=== PATIENT | male | born 2000 | race Caucasian/White ===

== ENCOUNTER 2023-03-06 04:00 | Emergency (ER) | payer BC, SELFPAY ==
[2023-03-06 04:05] VITALS: BP 152/99; PULSE 69; RESP 16; TEMP 36.8; O2SAT 99; BMI 19.5
--- NOTE | 2023-03-06 04:06 | HMH.EDGENADL ---
Discharge Plan Disposition Patient Disposition: Home, Self-Care Prescriptions Prescriptions: New doxycycline hyclate 100 mg tablet 100 mg PO BID 7 Days Qty: 14 0RF Referrals Follow up/Referrals: Provider,Referral, MD [Primary Care Provider] - See instructions Activity Restrictions/Add. Instructions Additional Instructions/Restrictions: Please take antibiotics as prescribed. We have treated you for gonorrhea, chlamydia, and trichomonas. Please follow-up with your primary care provider. Please return to the emergency department if you develop any new or worsening symptoms or become concerned for your health. Clinical Impressions Clinical Impression: Chlamydia trachomatis infection of genitourinary site, Abnormal penile discharge Instructions Patient Instructions: DI for Urinary Tract Infection (UTI), DI for Urinary Tract Infection in Children Discharge ED Provider: Rony Staley Adult HPI General Chief complaint: Urogenital-Male Stated complaint: positive for Chlamydia Time Seen by Provider: 03/06/23 04:05 History of Present Illness HPI narrative: 23-year-old male, previously healthy, presents for treatment of chlamydial infection. He reports that his has had chronic/recurrent urinary tract infections and she was tested for chlamydia and was positive. He was tested for chlamydia at a outpatient laboratory center in [place] and he just got his results back that he is positive for chlamydia. He was not tested for gonorrhea, trichomonas or any other STD. He reports that he has had approximately 1-1/2 weeks of dysuria and urinary discharge. He denies any penile lesions. Reports no fever or systemic illness. Related Data Previous Rx's Medication Instructions Recorded doxycycline hyclate 100 mg tablet 100 mg PO BID 7 days #14 tabs 03/06/23 Allergies Allergy/AdvReac Type Severity Reaction Status Date / Time No Known Allergies Allergy Verified 03/06/23 04:17 [facility] Disclaimer: The information contained in this section may have been updated after the patient was seen, as this information can be updated by other users. Social History Smoking Status: Current every day smoker alcohol intake: never current occupational status: other Travel in the last 8 weeks: None ROS Obtained: Yes All systems reviewed & no additional complaints except as documented Physical Exam General General appearance: alert and in no apparent distress Head Head exam: atraumatic and normocephalic Eye Eye exam: Present normal appearance, PERRL and EOMI ENT ENT exam: Present normal oropharynx and normal external ear exam Neck Neck exam: Present normal inspection and full ROM Chest Chest inspection: Present normal inspection and symmetric chest wall rise; Absent tenderness Respiratory Respiratory exam: Present normal lung sounds bilaterally; Absent respiratory distress Cardiovascular Cardiovascular exam: Present regular rate and normal rhythm Abdominal Exam Abdominal exam: Present soft; Absent distention, tenderness or guarding exam: Present deferred (Patient declined exam) Extremities Exam Extremities exam: Present normal inspection; Absent edema or joint swelling Back Exam Back exam: Present normal inspection; Absent tenderness Neurological Exam Neurological exam: Present alert and oriented X3; Absent motor sensory deficit Psychiatric Psychiatric exam: Present normal affect and normal mood Skin Skin exam: Present warm, dry and normal color Lymphatic Lymphatic Findings: no adenopathy Medical Decision Making Medical Records Medical records reviewed: Yes I reviewed the patient's medical records. Edgar Inquiry Pt receiving controlled substance: No Edgar was queried for this patient: No Vital Signs: 03/06/23 04:05 Temperature 98.3 F Temperature Source Oral Pulse Rate [Right] 69 Respiratory Rate 16 Blood Pressure [Right Arm] 152/99 H Blood Pressure Mean [Right Arm] 116
[2023-03-06 04:39] VITALS: BP 152/99; PULSE 69; RESP 16; TEMP 36.8; O2SAT 99
== END 2023-03-06 04:50 | disposition home or self-care (01) ==
PROVIDERS: Emergency Provider Emergency Medicine
DX: R36.9 Urethral discharge, unspecified (principal); A74.9 Chlamydial infection, unspecified; Z87.891 Personal history of nicotine dependence
CPT/HCPCS: 96372; 99283; 99284; J0696

== ENCOUNTER 2023-04-24 18:03 | Emergency (ER) | payer BC, SELFPAY ==
[2023-04-24 18:15] VITALS: BP 139/84; PULSE 82; RESP 20; TEMP 36.9; O2SAT 100
--- NOTE | 2023-04-24 18:31 | ED_ITS ---
Discharge Plan Disposition Patient Disposition: Home, Self-Care Condition: Good Prescriptions Prescriptions: New amoxicillin [amoxicillin] 875 mg tablet 875 mg PO Q12H Qty: 20 0RF ibuprofen [ibuprofen] 600 mg tablet 600 mg PO Q6HP PRN (Reason: Mild Pain) Qty: 30 0RF No Action doxycycline hyclate 100 mg tablet 100 mg PO BID 7 Days Qty: 14 0RF Referrals Follow up/Referrals: Provider,Referral, [Primary Care Provider] - See instructions Activity Restrictions/Add. Instructions Additional Instructions/Restrictions: Apply warm wet compresses to the affected site three or four times per day for the next few days. Take the antibiotics as directed. Take the ibuprofen as directed if needed for pain. Follow up with your primary care physician. GO TO THE ER FOR WORSENING SYMPTOMS Clinical Impressions Clinical Impression: Cervical lymphadenitis Instructions Patient Instructions: DI for Lymphadenopathy Discharge ED Provider: Sammy Acosta [facility] HPI General Stated complaint: lymph nodes around neck swollen Time Seen by Provider: 04/24/23 18:31 History of Present Illness Provider Complaint: He states that for the past 5 days he has had swollen lymph nodes in the left side of his neck. He denies any fever/chills. He denies sore throat. Related Data Previous Rx's Medication Instructions Recorded doxycycline hyclate 100 mg tablet 100 mg PO BID 7 days #14 tabs 03/06/23 amoxicillin 875 mg tablet 875 mg PO Q12H #20 tabs 04/24/23 ibuprofen 600 mg tablet 600 mg PO Q6HP PRN Mild Pain #30 04/24/23 tabs Allergies Allergy/AdvReac Type Severity Reaction Status Date / Time No Known Allergies Allergy Verified 03/06/23 04:17 [facility] Disclaimer: The information contained in this section may have been updated after the patient was seen, as this information can be updated by other users. Social History (Updated 03/06/23 @ 04:27 by Rony Staley MD) Smoking Status: Current every day smoker alcohol intake: never current occupational status: other Travel in the last 8 weeks: None ROS Obtained: Yes All systems reviewed & no additional complaints except as documented Constitutional Constitutional: Denies chills and Denies fever(s) Eyes Eyes: Denies eye discharge ENT Ears, Nose, Mouth, and Throat: Denies dizziness, Denies otalgia and Reports sore throat Cardiovascular Cardiovascular: Denies chest pain Respiratory Respiratory: Denies shortness of breath, Denies chest congestion, Denies cough, Denies stridor and Denies wheezing Gastrointestinal Gastrointestingal: Denies nausea or vomiting Musculoskeletal Musculoskeletal: Reports system reviewed and no additional complaints, except as documented and Denies arthralgias Integumentary/Breasts Skin/Breast: Denies rash Neurologic Neurologic: Denies dizziness and Denies paresthesias Hematologic/Lymphatic Henatologic/Lymphatic: Reports lymphadenopathy Allergic/Immunologic Allergic/Immunologic: Denies wheezing Physical Exam General General appearance: alert and in no apparent distress Head Head exam: atraumatic, normocephalic and normal inspection Eye Eye exam: Present normal appearance, PERRL and EOMI ENT ENT exam: Present mucous membranes moist and normal external ear exam Expanded ENT Exam TM/Canal exam: Bilateral TM: erythema and bulging Nose exam: Absent sinus tenderness Mouth exam: Present normal external inspection; Absent drooling Teeth exam: Present normal inspection Throat exam: Present tonsillar erythema, tonsillomegaly and tonsillar exudate Neck Neck exam: Present normal inspection, full ROM and trachea midline; Absent tenderness, meningismus or lymphadenopathy Chest Chest inspection: Present normal inspection and symmetric chest wall rise; Absent tenderness Respiratory Respiratory exam: Present normal lung sounds bilaterally; Absent respiratory distress, wheezes or stridor Cardiovascular Cardiovascular exam: Present regular rate and normal rhythm; Absent systolic murmur or diastolic murmur Abdominal Exam Abdominal exam: Present soft and normal bowel sounds; Absent distention, tenderness, guarding, rebound or rigidity Extremities Exam Extremities exam: Present normal inspection and normal capillary refill; Absent calf tenderness Back Exam Back exam: Present normal inspection and full ROM; Absent tenderness, CVA tenderness (R) or CVA tenderness (L) Neurological Exam Neurological exam: Present alert, oriented X3 and CN II-XII intact Psychiatric Psychiatric exam: Present normal affect and normal mood Skin Skin exam: Present warm, dry, intact and normal color Medical Decision Making Medical Records Medical records reviewed: No I reviewed the patient's medical records. Edgar Inquiry Pt receiving controlled substance: No Lab Data Lab results reviewed: Yes I reviewed the patient's lab results.
[2023-04-24 18:34] LABS: UTC Strep Screen (Rapid) Negative (Negative)
[2023-04-24 18:40] VITALS: BP 139/84; PULSE 82; RESP 20; TEMP 36.9; O2SAT 100
== END 2023-04-24 18:46 | disposition home or self-care (01) ==
PROVIDERS: Emergency Provider Nurse Practitioner Family
DX: L04.0 Acute lymphadenitis of face, head and neck (principal); F17.210 Nicotine dependence, cigarettes, uncomplicated
CPT/HCPCS: 87880; 99204; 99212; G0463